=== PATIENT | female | born 1985 | race Caucasian/White ===

== ENCOUNTER 2016-12-15 23:45 | Inpatient (IN) | payer SELFPAY ==
[~2016-12-15] VITALS: Ht 175.3 cm; Wt 107.0 kg
[2016-12-16] MEDS ORDERED: PREN1SGL25 PO (00:48)
[2016-12-16] MEDS ORDERED: FERR-252 PO (00:49)
[2016-12-16 00:55] VITALS: BP 112/73
[2016-12-16] MEDS ORDERED: OXYTOCIN 10 UNITS/ML VIAL IM SCH (01:00)
[2016-12-16] MEDS ORDERED: NALBUPHINE 10 MG/ML AMP IVP PRN (01:00)
[2016-12-16] MEDS ORDERED: PROMETHAZINE 25 MG/ML VIAL IVP PRN (01:00)
[2016-12-16] MEDS ORDERED: METHYLERGONOVINE 0.2 MG/ML AMP IM PRN ×2 (01:00→07:50)
[2016-12-16 01:26] LABS: BASOPHILS # (AUTO) 0.1 K/uL (0.00-0.22); BASOPHILS % (AUTO) 0.4 % (0.0-2.0); EOSINOPHILS # (AUTO) 0.1 K/uL (0-0.4); EOSINOPHILS % (AUTO) 0.8 % (0.0-4.0); HEMATOCRIT 33.7 % (36-48); HEMOGLOBIN 11.3 g/dL (12.0-16.0); LYMPHOCYTES # (AUTO) 1.7 K/uL (2.5-16.5); LYMPHOCYTES % (AUTO) 13.4 % (20.5-51.1); MEAN CORPUSCULAR HEMOGLOBIN 30 pg (27-31); MEAN CORPUSCULAR HGB CONC 34 g/dL (33-37); MEAN CORPUSCULAR VOLUME 90 fL (80-94); MONOCYTES # (AUTO) 0.9 K/uL (0.8-1.0); NEUTROPHILS # (AUTO) 9.8 K/uL (1.8-7.7); NEUTROPHILS % (AUTO) 78.4 % (42.2-75.2); PLATELET COUNT (AUTO) 212 K/uL (140-450); RED BLOOD CELL COUNT(AUTO) 3.74 MIL/uL (4.20-5.40); RED CELL DISTRIBUTION WIDTH 12.8 % (11.6-13.7); WHITE BLOOD COUNT (AUTO) 12.6 K/uL (4.8-10.8)
[2016-12-16 01:39] LABS: ALBUMIN 2.4 g/dL (3.4-5.0); ANION GAP 12.4 (8-16); CARBON DIOXIDE 24.3 mmol/L (21-32); CREATININE 0.6 mg/dL (0.6-1.3); POTASSIUM 3.7 mmol/L (3.5-5.1); TOTAL BILIRUBIN 0.3 mg/dL (0.0-1.0)
[2016-12-16] MEDS ORDERED: OXYTOCIN 20 UNITS/LR PREMIX 1,000 ML IV ONE ×2 (01:45→22:05)
[2016-12-16 02:21] LABS: APPEARANCE,URINE CLEAR (CLEAR); BILIRUBIN,URINE NEGATIVE (NEGATIVE); BLOOD, URINE TRACE-L (NEGATIVE); COLOR,URINE YELLOW (YELLOW); LEUKOCYTE ESTERASE ,URINE NEGATIVE (NEGATIVE); NITRITE, URINE NEGATIVE (NEGATIVE); PH,URINE 6.5 (5.0-9.0); UGLUCOSE NEGATIVE (NEGATIVE)
[2016-12-16 02:27] LABS: RBC,URINE 0-5 (RARE) /HPF (0-5); WBC,URINE 0-5 (RARE) /HPF (0-5)
[2016-12-16] MEDS ORDERED: CARBOPROST 250 MCG/ML AMP IM PRN (02:30)
[2016-12-16] MEDS ORDERED: LACTATED RINGERS 1,000 ML IV SCH (06:40)
[2016-12-16] MEDS ORDERED: AMPICILLIN 2,000 MG in NACL 0.9% 100 ML IV SCH (07:40)
[2016-12-16] MEDS ORDERED: BENZOCAINE/MENTHOL 20%-0.5% 60 GM CAN TP PRN (07:50)
[2016-12-16] MEDS ORDERED: oxyCODONE/APAP 5/325 MG 1 TAB TAB PO PRN (07:50)
[2016-12-16] MEDS ORDERED: MEASLES, MUMPS, AND RUBELLA 1 VIAL SQVAC PRN (07:50)
[2016-12-16] MEDS ORDERED: OXYTOCIN 10 UNITS/ML VIAL IM PRN (07:50)
[2016-12-16] MEDS ORDERED: HYDROcodone/APAP 5/325 MG 1 TAB TAB PO PRN (07:50)
[2016-12-16] MEDS ORDERED: AMPICILLIN 2,000 MG VIAL ONE (07:57)
--- NOTE | 2016-12-16 09:09 | NUR ---
PATIENT HAS BEEN SCREENED AND CATEGORIZED LOW NUTRITION RISK. PATIENT WILL BE SEEN WITHIN 7 DAYS OF ADMISSION. 12/22/[address]
[2016-12-16] MEDS ORDERED: AMPICILLIN 1,000 MG in NACL 0.9% 50 ML IV SCH (12:00)
[2016-12-16] MEDS ORDERED: AMPICILLIN 1,000 MG VIAL ONE (12:18)
[2016-12-16] MEDS ORDERED: PROMETHAZINE 25 MG/ML VIAL ONE ×2 (12:31→16:00)
[2016-12-16] MEDS ORDERED: NALBUPHINE HYDROCHLORIDE 10 MG/ML VIAL ONE ×3 (12:31→20:16)
[2016-12-16] MEDS ORDERED: DOCUSATE SOD/SENNA 50/8.6 MG 1 TAB PO SCH (21:00)
[2016-12-16] MEDS ORDERED: TEMAZEPAM 15 MG CAP PO PRN (21:00)
[2016-12-16] MEDS ORDERED: OXYTOCIN 10 UNITS/ML VIAL ONE (22:05)
[2016-12-16] MEDS ORDERED: LIDOCAINE 1% 50 ML ONE (22:12)
[2016-12-17 05:44] LABS: HEMATOCRIT 29.1 % (36-48); HEMOGLOBIN 9.7 g/dL (12.0-16.0)
[2016-12-17] MEDS ORDERED: NALBUPHINE 10 MG/ML AMP IVP PRN (07:24)
[2016-12-18] MEDS: IBUPROFEN 800 MG TAB PO PRN ×2 (00:34→06:44)
[2016-12-18] MEDS ORDERED: IBUP-1842 PO (11:20)
== END 2016-12-18 16:00 | disposition home or self-care (01) | DRG 775 ==
LOC: MLD 23:45 → MFCC 12-17 01:33
PROVIDERS: ADMIT Obstetrics & Gynecology; ATTEND Obstetrics & Gynecology
PROC: 10E0XZZ Delivery of Products of Conception, External Approach (ICD-10-PCS; principal; 2016-12-16)
DX: O80 Encounter for full-term uncomplicated delivery (principal); Z28.21 Immunization not carried out because of patient refusal; Z37.0 Single live birth; Z3A.39 39 weeks gestation of pregnancy
CPT/HCPCS: 36415; 80053; 81001; 85018; 85025; 86592; 86886; 86900; 86901; C1758; J0290; J2001; J2300; J2550; J2590; J7120